=== PATIENT | male | born 1960 | race Caucasian/White ===

== ENCOUNTER 2016-08-30 13:39 | Emergency (ER) | payer OTHER, MEDICARE ==
[~2016-08-30 13:39] MED LIST: ACCUNEB INH; ALA-CORT1 % EX; ALBUTEROL; ALBUTEROL/ATROVENT; AMANTADINE PEG; ATIVAN2I IM; ATROVENT HFA17 MCG INH; ATROVENTUD INH; ATV.5 PEG; ATV.5 PO; ATV1 PEG; ATV1 PO; BACDS PEG; BACLOFEN20 MG PEG; BROVANA15 MCG INH; CEFT2 PO; COLACEUDL PEG; COUMADIN6 MG PO; CRANBERRY JUICE PEG; CRANBERRY JUICE PO; CYSTEX PEG; D100 PEG; D100 PO; DEP250 PEG; DEPAK250ER PO; DEPAKOTE 125 M125 MG PO; DEPAKUDL PEG; DEPAKUDL PO; DITRO5 PEG; DSS PEG; DSS PO; DUONEB INH; ELOCON CREAM 0.15 GM T; ELOCON CREAM 0.15 GM TOP; ELOCON0.1 % EX; FENESIN IR400 MG PO; FLOMAX4 PO; FLORASTOR250 MG PEG; FRESHKOTE OPH; GENTEA1 OP; GENTEA2 OP; GENTEAL0.3 % OPH; GGEXPUD PEG; IBU400 PEG; IBU400 PO; JEVITY 1.5 PEG; JEVITY PEG; K-TABS10 MEQ PEG; K500 PO; KCL20UDL PEG; KEPPRA1000 MG PO; KEPPRA500 PO; KEPPRAINJ PEG; KEPPRAUDL PEG; KEPPRAUDL PO; L20 PEG; LACRILUBEO OPH; LEVAQUIN5T PO; LIOR10 PEG; LORTAB 5 PEG; LORTAB10 PO; LUBRIFRESH OPH; MIRALAX POWDER1 PKT PO; MIRALAXPKT PEG; MIRALAXPKT PO; MOMUD PEG; MOMUD PO; MOTRIN IB200 MG PO; MYCOSCROI TOP; MYCOSTATAB PO; NORCO1 TA1 PO; NYSTATIN 100000 UNIT; NYSTOP100000 MG TOP; PERIDEX MT; PHENY125S PEG; PHENY125S PO; PHENYUDL PEG; PR25 RE; PREV30 PEG; PREVACID SOLUTAB PEG; PREVALITE4 G1 PEG; PRILO PEG; PRILO PO; PRILOSEC10 M1 PEG; PROBIOTIC CAPSULE PEG; PROTOPIC0.1 %; PROTOPIC0.1 % TOP; PROVENTSOL INH; PULRESP.5 INH; Prilosec PO; REFENESEN400 MG PO; RITALIN10 PEG; ROCEPH IM; T PO; TRANSSCOP TOP; TYLENOL 650MG PEG; TYLENOL 8 HR650 MG PEG; TYLENOL ARTH650 MG PEG; V5 PEG; V5 PO; VIMPAT200 MG PEG; ZOL50 PEG; ZOSYN375 IV; [UNRECOGNIZED DRUG - OTHER] OPH; [UNRECOGNIZED DRUG - OTHER] OPH; [UNRECOGNIZED DRUG - OTHER] PEG; [UNRECOGNIZED DRUG - OTHER] PO
[2016-08-30 13:53] LABS: BASOPHILS 0.2 %; BASOPHILS ABSOLUTE 0.02 10/3/uL (0.0-0.16); EOSINOPHILS 3.7 %; EOSINOPHILS ABSOLUTE 0.32 10/3/uL (0.0-0.53); HEMATOCRIT 33.7 % (40.0-51.0); HEMOGLOBIN 11.6 g/dL (13.6-17.8); IMMATURE GRANULOCYTES 0.5 %; IMMATURE GRANULOCYTES ABSOLUTE 0.04 10/3/uL (0.0-0.11); LYMPHOCYTES 10.2 %; LYMPHOCYTES ABSOLUTE 0.89 10/3/uL (0.67-4.30); MEAN CORPUS HGB CONC 34.4 g/dL (32.0-36.0); MEAN CORPUSCULAR HEMOGLOB 30.1 pg (26.0-34.0); MONOCYTES 10.2 %; MONOCYTES ABSOLUTE 0.89 10/3/uL (0.21-1.20); NEUTROPHILS 75.2 %; NEUTROPHILS ABSOLUTE 6.57 10/3/uL (2.02-8.40); RBC DISTRIBUTION WIDTH 14.6 % (12.0-16.0); RED CELL COUNT 3.85 10/6/uL (4.7-6.1)
[2016-08-30 13:54] LABS: MANUAL DIFF NO %; MEAN CORPUSCULAR VOLUME 87.5 fL (80-100); PLATELET COUNT 307 10/3/uL (150-400); WHITE BLOOD CELLS 8.7 10/3/uL (4.5-10.5)
[2016-08-30 13:59] LABS: INTERNATIONAL NORMAL RATI 1.8 UNITS (-)
[2016-08-30 14:00] LABS: PARTIAL THROMBO TIME 40.4 SEC (22.5-37.2); PROTIME (NOT ORD) 20.5 SEC (12.0-14.5)
[2016-08-30 14:07] LABS: A/G RATIO 0.5 (0.7-1.9); ALKALINE PHOSPHATASE 91 U/L (45-117); BUN (BLOOD UREA NITROGEN) 14 MG/DL (6-23); CALCIUM, SERUM 8.3 MG/DL (8.5-10.4); CO2 (CARBON DIOXIDE) 30 MMOL/L (24-34); CREATININE 0.51 MG/DL (0.70-1.30); GFR AFRICAN AMERICAN 139 ML/MIN (>=60); GFR NON AFRICAN AMERICAN 120 ML/MIN (>=60); GLOBULIN 4.8 G/DL (2.5-4.1); GLUCOSE, SERUM 96 MG/DL (60-99); POTASSIUM, SERUM 4.1 MMOL/L (3.5-5.3); SGOT(AST) 23 U/L (5-40); SGPT(ALT) 27 U/L (5-65); TOTAL BILIRUBIN 0.6 MG/DL (0-1.2); TOTAL PROTEIN 7.4 G/DL (6.0-8.5)
[2016-08-30 14:08] LABS: ALBUMIN 2.6 G/DL (3.5-5.0); CHLORIDE, SERUM 99 MMOL/L (96-112); SODIUM, SERUM 138 MMOL/L (135-148)
[2016-08-30 14:09] LABS: LACTATE 1.4 MMOL/L (0.3-2.4)
[2016-08-30 14:24] LABS: ASCORBIC ACID (UR NOT ORDER) 40 (NEG); BILIRUBIN, URINE NEGATIVE (NEG); ER URINALYSIS TAT 0 Hrs 20 Mins; KETONE, URINE NEGATIVE (NEG); LEUKOCYTE ESTERASE(NOT OR LARGE (NEG); NITRITE (URINE) POS (NEG); WBC (NOT ORDERED) (RFLEX) 44 (0-5)
[2016-08-30 15:11] LABS: PROCALCITONIN 0.06 ng/mL (<0.5)
[2016-08-30 16:46] LABS: DILANTIN (PHENYTOIN) 4.1 MCG/ML (10.0-20.0)
[2016-09-27] MEDS ORDERED: CIP5 PO (15:02)
[2016-09-27] MEDS ORDERED: JEVITY PEG (15:02)
[2016-09-27] MEDS ORDERED: CRANBERRY (15:03)
[2016-09-27] MEDS ORDERED: C5 PO (15:04)
[2016-09-27] MEDS ORDERED: C25 PO (15:04)
[2016-09-27] MEDS ORDERED: LOVENOX40 SC (15:05)
[2016-09-27] MEDS ORDERED: NORCO1 TAB PO (15:18)
== END 2016-08-30 19:45 | disposition home or self-care (01) ==
LOC: ER 13:39
PROVIDERS: Nurse Practitioner
DX: N39.0 Urinary tract infection, site not specified (principal); Z79.899 Other long term (current) drug therapy
CPT/HCPCS: 71010; 74176; 80053; 80185; 81001; 83605; 84145; 85025; 85610; 85730; 87040; 87077; 87086; 87186; 96374; 96375; 99284; J2405

== ENCOUNTER 2016-09-30 22:48 | Emergency (ER) | payer OTHER ==
[~2016-09-30 22:48] MED LIST changes: +C25 PO; +C5 PO; +CIP5 PO; +CRANBERRY; +LOVENOX40 SC; +NORCO1 TAB PO
[2016-10-01 01:32] LABS: BASOPHILS 0.2 %; BASOPHILS ABSOLUTE 0.01 10/3/uL (0.0-0.16); EOSINOPHILS 1.7 %; EOSINOPHILS ABSOLUTE 0.11 10/3/uL (0.0-0.53); ER CBC TAT 0 Hrs 07 Mins; IMMATURE GRANULOCYTES 0.2 %; IMMATURE GRANULOCYTES ABSOLUTE 0.01 10/3/uL (0.0-0.11); LYMPHOCYTES 23.1 %; LYMPHOCYTES ABSOLUTE 1.52 10/3/uL (0.67-4.30); MEAN CORPUS HGB CONC 33.9 g/dL (32.0-36.0); MEAN CORPUSCULAR HEMOGLOB 29.7 pg (26.0-34.0); MEAN CORPUSCULAR VOLUME 87.4 fL (80-100); MEAN PLATELET VOLUME 11.4 fL (9.2-13.0); MONOCYTES ABSOLUTE 0.53 10/3/uL (0.21-1.20); NEUTROPHILS 66.8 %; NEUTROPHILS ABSOLUTE 4.41 10/3/uL (2.02-8.40); RBC DISTRIBUTION WIDTH 14.3 % (12.0-16.0); WHITE BLOOD CELLS 6.6 10/3/uL (4.5-10.5)
[2016-10-01 01:33] LABS: HEMATOCRIT 44.5 % (40.0-51.0); HEMOGLOBIN 15.1 g/dL (13.6-17.8); PLATELET COUNT 150 10/3/uL (150-400); RED CELL COUNT 5.09 10/6/uL (4.7-6.1)
[2016-10-01 01:35] LABS: MANUAL DIFF NO %
[2016-10-01 01:42] LABS: BUN (BLOOD UREA NITROGEN) 11 MG/DL (6-23); CALCIUM, SERUM 8.8 MG/DL (8.5-10.4); CHLORIDE, SERUM 105 MMOL/L (96-112); CO2 (CARBON DIOXIDE) 32 MMOL/L (24-34); CREATININE 0.42 MG/DL (0.70-1.30); GFR AFRICAN AMERICAN 151 ML/MIN (>=60); GFR NON AFRICAN AMERICAN 130 ML/MIN (>=60); GLUCOSE, SERUM 80 MG/DL (60-99); POTASSIUM, SERUM 3.8 MMOL/L (3.5-5.3); SODIUM, SERUM 139 MMOL/L (135-148)
== END 2016-10-01 03:10 | disposition home or self-care (01) ==
LOC: ER 22:48
PROVIDERS: Specialist
DX: L98.9 Disorder of the skin and subcutaneous tissue, unspecified (principal); F32.9 Major depressive disorder, single episode, unspecified; D64.9 Anemia, unspecified; Z79.01 Long term (current) use of anticoagulants; Z79.899 Other long term (current) drug therapy
CPT/HCPCS: 70450; 80048; 85025; 99284

== ENCOUNTER 2016-10-02 11:13 | Day surgery (SDC) | payer OTHER ==
--- NOTE | ~2016-10-02 | OP ---
Record Of Operation [facility] [address] [place]. [address] NAME: VIK CERNA : 60 STATUS : [facility] UNIT#: [id number] AGE: 56 ADM/REG DATE : 10/02/16 MR#: [id number] REPORT SERV DATE: 10/03/16 DICTATED BY: ELIAS CELIS DATE: 10/02/16 REPORT STATUS : Draft TRANSCRIBED BY: MODL DATE: 10/02/16 DATE OF PROCEDURE: 10/02/2016 SURGEON: Elias Celis M.D. TYPE OF OPERATION: Cystourethroscopy, left retrograde pyelogram, left ureteroscopy with laser lithotripsy, placement of 6 x 26 left ureteral stent; dilation of suprapubic tube tract, and exchange of SP tube. PREOPERATIVE DIAGNOSES: 1. Renal stones with history of infection. 2. Neurogenic bladder. POSTOPERATIVE DIAGNOSES: 1. Renal stones with history of infection. 2. Neurogenic bladder. INDICATIONS: Mr. Cerna is a 56-year-old male with traumatic brain injury. He has problems with recurring stones and recurring infections. He has a neurogenic bladder managed by SP tube. He has some left renal stones and is here now for therapy. He has been on culture- directed antibiotics. ANESTHESIA: General. COMPLICATIONS: None. IMPLANTS: 1. A 6 x 28 left ureteral stent. 2. A 20 Y[place]ut suprapubic tube. NARRATIVE: The patient was brought to the operating room, identified by his wristband. General anesthesia was induced and Levaquin was given for preoperative antibiotics. He is left supine as he is contracted, unable to be placed in lithotomy. His SP tube was removed and he was prepped and draped in sterile fashion. I placed a 17-Yakut flexible cystoscope in through his SP tube tract into his bladder. The left ureteral orifice was identified and cannulated with a Sensor wire. The wire was advanced to the kidney under fluoroscopic guidance. The scope was removed. A flexible ureteroscope was placed over the wire into the kidney under fluoroscopic guidance. The kidney was inspected. Several small stones were encountered in the lower pole of the kidney. These were fragmented into innumerable small pieces with a 200 micron holmium laser fiber. None of these stones were able to be grasped with a grasper. I thought it unwise to try to remove the stone intact as ureteral access was tenuous given the situation. These stone should wash out under gravity. A wire was placed back through the scope into the kidney. The scope was removed. A 6 x 28 ureteral stent was placed in standard fashion. The proximal coil was in the renal pelvis under fluoroscopic guidance. Distal coil was in the bladder under direct vision. The SP tube tract was then dilated to 22-Yakut using Amplatz dilators over a Sensor wire. The stent Record Of [address] [address] NAME: VIK CERNA : 60 STATUS : [facility] PAT#: [id number] AGE: 56 ADM/REG DATE : 10/02/16 MR#: [id number] REPORT SERV DATE: 10/03/16 DICTATED BY: ELIAS CELIS DATE: 10/02/16 REPORT STATUS : Draft TRANSCRIBED BY: JEREMIE DATE: 10/02/16 tether was tied to the catheter. The catheter was then placed into the bladder and the balloon was inflated with 10 mL of sterile water. There were no complications. The patient will be discharged today. I will see him back in two weeks when I will exchange his SP tube and remove his stent, which will be removed by simply removing the SP tube. ROULA/JEREMIE Elias Celis MD / [id number] CC: MD Artem Church M.D.
[2016-10-02 12:21] LABS: INTERNATIONAL NORMAL RATI 1.2 UNITS (-)
[2016-10-02 12:25] LABS: PROTIME (NOT ORD) 14.7 SEC (12.0-14.5)
== END 2016-10-02 21:08 | disposition home or self-care (01) ==
LOC: SDC 11:13
PROVIDERS: Urology
PROC: 0TF78ZZ Fragmentation in Left Ureter, Via Natural or Artificial Opening Endoscopic (ICD-10-PCS; principal; 2016-10-02 12:45)
PROC: 0T778DZ Dilation of Left Ureter with Intraluminal Device, Via Natural or Artificial Opening Endoscopic (ICD-10-PCS; 2016-10-02 12:45)
DX: N20.0 Calculus of kidney (principal); N31.9 Neuromuscular dysfunction of bladder, unspecified; F32.9 Major depressive disorder, single episode, unspecified; D64.9 Anemia, unspecified; R56.9 Unspecified convulsions; Z93.0 Tracheostomy status; Z86.718 Personal history of other venous thrombosis and embolism; Z98.890 Other specified postprocedural states
CPT/HCPCS: 74420; 85610; 93005; C1726; C1758; C2617; J1956; J2250; J2370; Q9967

== ENCOUNTER 2017-02-20 07:41 | Emergency (ER) | payer OTHER ==
[~2017-02-20] VITALS: Ht 182.9 cm; Wt 90.7 kg
[2017-02-20] MEDS ORDERED: [UNRECOGNIZED DRUG - OTHER] OPH (10:45)
[2017-02-20] MEDS ORDERED: ATV.5 PEG (10:46)
[2017-02-20] MEDS ORDERED: BACLOFEN20 MG PO (10:47)
[2017-02-20] MEDS ORDERED: C25 PO (10:48)
[2017-02-20] MEDS ORDERED: COLACEUDL PO (10:48)
[2017-02-20 10:49] LABS: BASOPHILS 0.2 %; BASOPHILS ABSOLUTE 0.01 10/3/uL (0.0-0.16); EOSINOPHILS 3.6 %; EOSINOPHILS ABSOLUTE 0.16 10/3/uL (0.0-0.53); HEMATOCRIT 46.3 % (40.0-51.0); HEMOGLOBIN 15.9 g/dL (13.6-17.8); IMMATURE GRANULOCYTES 0.2 %; IMMATURE GRANULOCYTES ABSOLUTE 0.01 10/3/uL (0.0-0.11); LYMPHOCYTES 31.5 %; MANUAL DIFF NO %; MEAN CORPUS HGB CONC 34.3 g/dL (32.0-36.0); MEAN CORPUSCULAR HEMOGLOB 29.7 pg (26.0-34.0); MEAN CORPUSCULAR VOLUME 86.4 fL (80-100); MEAN PLATELET VOLUME 11.6 fL (9.2-13.0); MONOCYTES 10.4 %; MONOCYTES ABSOLUTE 0.46 10/3/uL (0.21-1.20); NEUTROPHILS 54.1 %; PLATELET COUNT 130 10/3/uL (150-400); RBC DISTRIBUTION WIDTH 18.6 % (12.0-16.0); RED CELL COUNT 5.36 10/6/uL (4.7-6.1); WHITE BLOOD CELLS 4.4 10/3/uL (4.5-10.5)
[2017-02-20] MEDS ORDERED: CYSTEX PEG (10:52)
[2017-02-20] MEDS ORDERED: D100 PEG (10:55)
[2017-02-20 10:56] LABS: INTERNATIONAL NORMAL RATI 1.6 UNITS (-)
[2017-02-20] MEDS ORDERED: DUONEB INH (10:56)
[2017-02-20 10:57] LABS: PARTIAL THROMBO TIME 40.8 SEC (22.5-37.2); PROTIME (NOT ORD) 18.8 SEC (12.0-14.5)
[2017-02-20] MEDS ORDERED: ELOCON CREAM 0.15 GM TOP (10:57)
[2017-02-20] MEDS ORDERED: GGEXPUD PEG (11:01)
[2017-02-20] MEDS ORDERED: KLOR-CON M2020 MEQ PO (11:02)
[2017-02-20] MEDS ORDERED: KEPPRA750 MG PEG (11:03)
[2017-02-20] MEDS ORDERED: MIRALAX POWDER1 PKT PO (11:04)
[2017-02-20] MEDS ORDERED: L20 PO (11:04)
[2017-02-20] MEDS ORDERED: MOMUD PO (11:07)
[2017-02-20] MEDS ORDERED: PRILO PO (11:07)
[2017-02-20] MEDS ORDERED: FLORASTOR250 MG PEG (11:09)
[2017-02-20] MEDS ORDERED: PERIDEX PO (11:10)
== END 2017-02-20 14:33 | disposition other institution (70) ==
LOC: ER 07:41 → RADHOLD 11:34 → ER 11:35 → RADHOLD 11:35 → ER 14:33
PROVIDERS: Nurse Practitioner
DX: T83.028A Displacement of other urinary catheter, initial encounter (principal); N18.9 Chronic kidney disease, unspecified; F32.9 Major depressive disorder, single episode, unspecified; D64.9 Anemia, unspecified; Z79.01 Long term (current) use of anticoagulants; Z79.899 Other long term (current) drug therapy
CPT/HCPCS: 51705; 85025; 85610; 85730; 99284; C1769; J2250; Q9967